=== PATIENT | male | born 1980 | race Caucasian/White ===

== ENCOUNTER → 2016-08-20 | Outpatient (CLI) | payer OTHER ==
--- NOTE | 2016-08-27 17:25 | CPEEG ---
[f rep st] ELECTROENCEPHALOGRAM DATE OF STUDY: 08/20/2016 DATE OF INTERPRETATION: 08/27/2016. INTERPRETATION: Normal EEG during wakefulness and sleep. There were no potentially epileptogenic a bnormalities present during the recording. REPORT: This EEG contains 10 Hz alpha activity to the posterior head regions. The background activ ity was normal and symmetric. There was no abnormal activation at rest, during photic stimulation, or hyperventilation. The patient became drowsy and fell asleep during the study. There was no abno rmal activation during drowsiness, sleep, or during times of arousal. /[id number]/MODL
== END ==
LOC: FCPNEURO 14:33
PROVIDERS: ATTEND Psychiatry & Neurology Neurology
DX: F95.9 Tic disorder, unspecified (principal)